=== PATIENT | female | born 1990 ===

== ENCOUNTER 2020-08-02 00:48 | Emergency (ER) | payer SELFPAY ==
[2020-08-02] MEDS ORDERED: SODIUM CHLORIDE 1,000 ML IV SCH (01:00)
[2020-08-02] MEDS ORDERED: RAPID SEQUENCE INTUBATION KIT NR ONE (01:04)
[2020-08-02] MEDS ORDERED: ROCURONIUM BROMIDE 100 MG/10 ML VIAL ONE (01:11)
[2020-08-02 01:22] LABS: BASO % 0.9 % (0-2.0); EOS % 0.7 % (0-4.5); HEMATOCRIT 30.3 % (32.4-45.2); HEMOGLOBIN 10.3 GM/dL (10.7-15.3); LYMPH % 15.1 % (8-40); MCH 28.4 pg (25.7-33.7); MEAN CELL VOLUME 83.5 fl (80-96); MEAN PLT VOLUME 6.5 fl (7.5-11.1); MONO % 5.9 % (3.8-10.2); NEUT % 77.4 % (42.8-82.8); PLATELET COUNT 531 K/MM3 (134-434); RBC 3.63 M/mm3 (3.60-5.2); RDW 18.3 % (11.6-15.6)
--- NOTE | 2020-08-02 01:22 | PDOC ---
Attending Attestation - Resident Resident Name: Jesus Pruett - ED Attending Attestation I have performed the following: I have examined & evaluated the patient, The case was reviewed & discussed with the resident, I agree w/resident's findings & plan - HPI HPI: 08/02/20 01:26 Pt comes from [facility] with no paperwork; she had a stroke;found down at 12:35AM . SHe was last well and 12:05AM; nurses at the [facility] who found her AMS with a blown pupil; frothing at the mouth and lying in bed. She went to the [facility] on Sunday. 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 08/02/20 02:21 Pt also had a fasciotomy of her R.foot seondary to compartment syndrome due to a tight bandage. - Physicial Exam PE: 08/02/20 01:35 Pt has a blown pupil on the left side Pt is completely unresponsive, except pulls arms back to pain see resident note for full exam - Medical Decision Making 08/02/20 01:35 THIS IS A PRELIMINARY REPORT DATE OF SERVICE: 2020-08-02 00:55:26 IMAGES: [id number] CT brain without contrast HISTORY: Rule out CVA/bleed COMPARISON: None. FINDINGS: Positive for an acute left sided parenchymal hemorrhage which involves the white matter of the left frontal and temporal lobes as well as the left basal ganglia/internal capsule regions. The hemorrhage with surrounding edema measures approximately 7.7 cm x 6.1 cm x 6.4 cm The mass-effect results in a 1.5cm subfalcine shift to the right with compression of the left lateral and third ventricles and resultant entrapment of the right lateral ventricle. Blood has also leaked into the lateral and fourth ventricle. 08/02/20 02:[address] Early (neurosurg fellow) who is aware of patient and recommends that we speak to Stroke neurology Dr Octavio Muñoz, who is aware of patient and recommends Dr. Raymundo of Neuro ICU to accept patient to Neuro ICU; he is aware of patient and has a bed. Recommends 1.5g/kg of mannitol. Patient's CT result given. PMHx of hep C and drug abuse and endocarditis with mitral valve replacement known (supposed to be on Nafcillin 2g Q4 hours; started on 07/19/20 and supposed to end 09/02/2020. Pt is on heparin SQ 5000U Q8 hours, last dose was 9PM; no need for protamine reversal. Pt's LEGAL Name is Albania Chen. However pt prefers Komal Chen, so her NH band on her arm is Komal Chen. 1990 grandparent: [phone] dad: [phone] Patient's home phone # [phone] 08/02/20 02:28 Intubated in our ER using Etomidae and rocuronium; 7.5 ETT direct visualization Pt has fentanyl drip running for continued sedation Discharge - Discharge Information Problems reviewed: Yes Clinical Impression/Diagnosis: Cerebrovascular accident (CVA), Intracranial hemorrhage Condition: Critical Disposition: TRANSFER ACUTE CARE/OTHER HOSP - Follow up/Referral - Patient Discharge Instructions - Post Discharge Activity
[2020-08-02] MEDS ORDERED: ETOMIDATE 40 MG/20 ML VIAL IVPUSH ONE (01:23)
[2020-08-02] MEDS ORDERED: ROCURONIUM BROMIDE 50 MG/5 ML VIAL IVPUSH ONE (01:24)
[2020-08-02] MEDS ORDERED: FENTANYL NS IVPB 500 MCG/100 ML BAG IVPB SCH (01:30)
--- NOTE | 2020-08-02 01:32 | PDOC ---
*Physical Exam - Vital Signs Last Vital Signs Temp Pulse Resp BP Pulse Ox 123 H 21 H 161/115 H 99 08/02/20 01:22 08/02/20 01:22 08/02/20 01:22 08/02/20 01:22 ED Treatment Course - LABORATORY CBC & Chemistry Diagram: 08/02/20 01:05 08/02/20 01:05 - RADIOLOGY Radiology Studies Ordered: Category Date Time Status HEAD CT (STROKE) [CT] Stat CT Scan 08/02/20 00:54 Taken Medical Decision Making - Medical Decision Making Discussed case with Dr. Wilkes, neurosurgeon who recommended transfer to [facility] Dr. Worthy is the neurosurgeon there and the patient should go immediately to surgery at [facility] 08/02/20 01:29 Discussed case with Sherlyn Lovelace (patient's healthcare proxy and grandmother) who consents to transfer, Jagruti Lamar RN witnessed this consent as well Transfer paperwork prepared 08/02/20 01:54 Discharge - Discharge Information Problems reviewed: Yes Clinical Impression/Diagnosis: Cerebrovascular accident (CVA), Intracranial hemorrhage Condition: Critical Disposition: TRANSFER ACUTE CARE/OTHER HOSP - Follow up/Referral - Patient Discharge Instructions - Post Discharge Activity
[2020-08-02 01:38] LABS: INR 1.15 (0.83-1.09); PROTHROMBIN TIME (PATIENT) 13.6 SEC (9.7-13.0)
[2020-08-02 01:42] LABS: ARTERIAL BLD GAS O2 SATURATION 87.3 mmHg (95-98); ARTERIAL BLOOD GAS BASE EXCESS -2.2 mmol/L (-2-2); ARTERIAL BLOOD GAS PO2 55.8 mmHg (80-100); ARTERIAL BLOOD GAS pH 7.343 (7.350-7.450)
[2020-08-02 01:48] LABS: VENT MODE AC; VENT RATE 14
--- NOTE | 2020-08-02 01:50 | PDOC ---
History of Present Illness - General Chief Complaint: CVA/TIA Stated Complaint: POSSIBLE STROKE Time Seen by Provider: 08/02/20 01:21 History Source: EMS Exam Limitations: Clinical Condition - History of Present Illness Initial Comments: 08/02/20 01:40 Limited note 2/2 life threatening presentation of patient and significant paucity of information. 30F BIBEMS from [facility] for evaluation of unresponsiveness, posturing, and fixed dilated pupil. Unknown down time. NH gave narcan without response. All hx per EMS. [place] EHR was down and at the time of evaluation there was no records to refer to; also first time in our EHR. Kendrick Matti called on EMS arrival to ED. Wet read of head CT demonstrating an intracranial bleed; refer to radiology report for official read. Pt subsequently intubated for airway protection. Neurosurgery consulted. Transfer to [facility]. Please refer to Dr. Collins and Dr. Cintron notes for further information. Initial exam demonstrating b/l fixed and dilated pupils without reaction to light. Eyes open. Unresponsive to verbal and tactile stimulation. Not posturing on exam. Limited response to pain. [facility] CT HEAD IMPRESSION: CT brain without contrast HISTORY: Rule out CVA/bleed COMPARISON: None. FINDINGS: Positive for an acute left sided parenchymal hemorrhage which involves the white matter of the left frontal and temporal lobes as well as the left basal ganglia/internal capsule regions. The hemorrhage with surrounding edema measures approximately 7.7 cm x 6.1 cm x 6.4 cm The mass-effect results in a 1.5cm subfalcine shift to the right with compression of the left lateral and third ventricles and resultant entrapment of the right lateral ventricle. Blood has also leaked into the lateral and fourth ventricle. One or more of the following dose reduction techniques were used: automated exposure control, adjustment of the mA and/or kV according to patient size, use of iterative reconstructive technique. THIS DOCUMENT HAS BEEN ELECTRONICALLY SIGNED Jesus Perea MD 08/02/2020 01:22 LIAM Dobbins Please call Imaging Edger Technician [phone] with questions. INTERPRETING RADIOLOGIST: Jesus Perea MD Electronically Signed: Aug 02, 2020 01:23AM EDT Patient Full Name: SANIYA BAXTER Patient Accession No: [id number] Patient : 1990 Reason for Exam: r/o cva /bleed no priors Referring Physician: HUMAIRA KOTHARI These findings were verbally communicated to Ki Johnston, Physician on SunAugust 02 2020 01:28:45 EDT. One or more of the following dose reduction techniques were used: automated exposure control, adjustment of the mA and/or kV according to patient size, use of iterative reconstructive technique. THIS DOCUMENT HAS BEEN ELECTRONICALLY SIGNED Jesus Perea MD 08/02/2020 01:29 EST Briana. Please call Imaging Edger Technician [phone] with questions. INTERPRETING RADIOLOGIST: Jesus Perea MD Electronically Signed: Aug 02, 2020 01:29AM EDT tPA Exclusion checklist 3-4.5h - Time Elapsed Date last known well: 07/31/20 Time last known well: 00:00 (unknown) Elaspsed time: 2 Day(s) and 9 Hour(s) and 23 Minutes - Thrombolytic Therapy Candidate Is patient eligible for thrombolytic therapy: No - Exclusion Criteria 3-4.5 hr Active internal bleeding: Yes - Ineligibility reason(s) Reasons No tPA given: See reason(s) noted above (intracranial hemorrhage) NIH Stroke Scale - Last Known Well Date/Time & Onset Date Last Known Well: 07/31/20 (unknown) Time Last Known Well: 00:00 (unknown) - Initial Evaluation Level of consciousness: Coma Ask patient the month and their age: Both incorrect Ask patient to open & close eyes; make fist and let go: Both incorrect Best gaze (horizontal eye movement): Normal (score marked was given as patient unable to be tested; see HPI.) Visual field testing: Bilateral hemianopia (blind including cortical blindness) Facial paresis (Show teeth/raise eyebrows/close eyes tight): Complete paralysis of one or both sides (Upper and lower face) Motor Function: Left Arm: Untestable (Joint fused orlimb amputated), explain: Motor Function: Right Arm: Untestable (Joint fused or limb amputated), explain: Motor Function: Left Leg: Untestable (Joint fused or limb amputated), explain: Motor Function: Right Leg: Untestable )Joint fused orlimb amputated), explain: Limb Ataxia: Untestable (Joint fused or limb amputated), explain: Sensory(Use pinprick test arms,legs,trunk,face/side to side): Severe to total sensory loss Best language (Describe picture, name items, read sentences): Mute Dysarthria (read several words): Intubated or other physical barrierr, explain: Extinction and Inattention: Profound eddi-inattention or extinction to more than one modality - Total Score NIH Stroke Scale Score: 20 Past History - Medical History Allergies/Adverse Reactions: Allergies Allergy/AdvReac Type Severity Reaction Status Date / Time No Known Allergies Allergy Verified 08/02/20 01:58 - Reproductive History Is Patient Now?: No - Psycho-Social/Smoking History Smoking History: Unknown if ever smoked Review of Systems - Review of Systems Able to Perform ROS?: No (unresponsive) *Physical Exam - Vital Signs Last Vital Signs Temp Pulse Resp BP Pulse Ox 123 H 21 H 161/115 H 99 08/02/20 01:22 08/02/20 01:22 08/02/20 01:22 08/02/20 01:22 - Physical Exam 08/02/20 02:02 see hpi. Procedures - Consent Consent obtained: Unable to obtain (emergent) - Intubation Time of Intubation: 01:05 (decision to intubate based on unresponsive patient with intracranial hemorrhage; poor airway protection.) Intubation Method: orotracheal Blade used: Mac Tube Size (Fr): 7.5 Medications: Etomidate, Rocuronium Tube position confirmed by: Direct visualization, CO2 detector, Chest x-ray, Breath sounds Breath Sounds after Intubation: equal Intubation Complications: no complications Post Intubation Xray: Yes (tube appears at hernan; white out of left lung; SaO2 100% post) ED Treatment Course - LABORATORY CBC & Chemistry Diagram: 08/02/20 01:05 08/02/20 01:05 - ADDITIONAL ORDERS Additional order review: Laboratory Results 08/02/20 01:05 PT with INR 13.60 H INR 1.15 H 08/02/20 01:05 RBC 3.63 MCV 83.5 MCHC 34.0 RDW 18.3 H MPV 6.5 L Neutrophils % 77.4 Lymphocytes % 15.1 Monocytes % 5.9 Eosinophils % 0.7 Basophils % 0.9 Medical Decision Making - Medical Decision Making 08/02/20 02:02 see hpi Discharge - Discharge Information Problems reviewed: Yes Clinical Impression/Diagnosis: Cerebrovascular accident (CVA), Intracranial hemorrhage Condition: Critical Disposition: TRANSFER ACUTE CARE/OTHER HOSP - Follow up/Referral - Patient Discharge Instructions - Post Discharge Activity
[2020-08-02] MEDS ORDERED: MANNITOL 25% 12.5 GM/50 ML VIAL IVPB ONE ×2 (01:58→02:09)
[2020-08-02 02:05] LABS: CHOLESTEROL 167 mg/dL (50-200); HDL CHOLESTEROL 43 mg/dL (40-60); LDL CHOLESTEROL (ONLY SJRH) 117 mg/dL (5-100); TRIGLYCERIDES 81 mg/dL (0-150)
[2020-08-02 02:07] LABS: ALBUMIN 2.5 g/dl (3.4-5.0); BILIRUBIN,TOTAL 0.6 mg/dL (0.2-1); BLOOD UREA NITROGEN 17.1 mg/dL (7-18); CALCIUM 8.9 mg/dL (8.5-10.1); CREATININE 0.8 mg/dL (0.55-1.3); POTASSIUM 3.6 mmol/L (3.5-5.1); TOT PROT 7.8 g/dl (6.4-8.2)
[2020-08-02 03:12] VITALS: BMI 23.6
[2020-08-02 03:27] VITALS: BP 157/93; PULSE 125
--- NOTE | 2020-08-02 17:01 | EKG ---
Test Reason : Blood Pressure : / mmHG Vent. Rate : 115 BPM Atrial Rate : 115 BPM P-R Int : 204 ms QRS Dur : 070 ms QT Int : 320 ms P-R-T Axes : 076 063 062 degrees QTc Int : 442 ms SINUS TACHYCARDIA NONSPECIFIC T WAVE ABNORMALITY ABNORMAL ECG NO PREVIOUS ECGS AVAILABLE Confirmed by FANI MENDIETA MD ([id number]) on 08/02/2020 5:01:32 PM Referred By: Confirmed By:FANI MENDIETA MD
== END 2020-08-02 05:17 | disposition short-term general hospital (02) ==
LOC: JER 00:48
PROC: 3E033NZ Introduction of Analgesics, Hypnotics, Sedatives into Peripheral Vein, Percutaneous Approach (ICD-10-PCS; principal; 2020-08-02)
PROC: 3E033GC Introduction of Other Therapeutic Substance into Peripheral Vein, Percutaneous Approach (ICD-10-PCS; 2020-08-02)
DX: I63.9 Cerebral infarction, unspecified (principal); I62.9 Nontraumatic intracranial hemorrhage, unspecified
CPT/HCPCS: 36415; 36600; 70450-TC; 71045-TC-FY; 80053; 80061; 82550; 82803; 83721; 84484; 85025; 85610; 85730; 86850; 86900; 86901; 93005; 93010; 99285-25; U0003